=== PATIENT | female | born 1995 | race Caucasian/White ===

== ENCOUNTER → 2023-07-18 09:45 | Outpatient (REF) | payer OTHER, SELFPAY | LOC: PNTC 09:45 | PROVIDERS: ATTENDING PHYSICIAN Obstetrics & Gynecology | DX: O48.0 Post-term pregnancy (principal) | CPT/HCPCS: 59025; 76815 ==

== ENCOUNTER 2023-07-19 08:20 | Inpatient (IN) | payer OTHER, SELFPAY ==
[2023-07-19] MEDS: LR 1000 IV (08:30)
[2023-07-19 08:33] VITALS: BP 105/57
[2023-07-19 09:26] LABS: % Basophils 0.2 % (0-2); % Immature Granulocytes 0.5 % (0-0.5); % Monocytes 6.7 % (1.7-9.3); % Neutrophils 59.6 % (42.2-75.2); Absolute Eosinophils 0.1 10^3/uL (0-0.7); Absolute Lymphocytes 1.8 10^3/uL (1.2-3.4); Absolute Monocytes 0.4 10^3/uL (0.1-0.6); Absolute Neutrophils 3.5 10^3/uL (1.4-6.5); Hematocrit 40.1 % (37.0-47.0); Hemoglobin 13.4 g/dL (12.0-16.0); Mean Corp Hgb Conc. 33.4 g/dL (33.0-37.0); Mean Corpuscular Hgb 31.5 pg (27.0-31.0); Mean Corpuscular Volume 94.1 fL (81.0-99.0); Mean Platelet Volume 10.2 fL (7.4-10.4); Nucleated Red Blood Cells % 0 %; Platelet Count 149 10^3/uL (130-400); Red Blood Cell Count 4.26 10^6/uL (4.20-5.40); Red Cell Dist. Width 13.8 % (11.5-14.5); White Blood Cell Count 5.9 10^3/uL (4.8-10.8)
[2023-07-19] MEDS: PENICILLIN 110 UNITS IV (09:36)
[2023-07-19] MEDS: PITOCIN 30 UNITS/NSS 500 ML IV (12:16)
[2023-07-19] MEDS: PENICILLIN 55 UNITS IV (13:31)
[2023-07-19] MEDS: FENTANYL/BUPIVACAINE 100 EPIDURAL (14:46)
[2023-07-19] MEDS: SUBLIMAZE 100 MCG EPIDURAL (14:46)
[2023-07-19 15:43] VITALS: BMI 25.8
[2023-07-20 04:57] LABS: Hematocrit 37.7 % (37.0-47.0); Hemoglobin 13.1 g/dL (12.0-16.0)
[2023-07-20 15:35] LABS: Syphilis/T. pallidum Ab Reflex Negative (Negative)
[2023-07-21] MEDS: M-M-R II 0.5 ML SC (11:23)
== END 2023-07-21 13:09 | disposition home or self-care (01) | DRG 807 ==
LOC: LDRP 08:20
PROVIDERS: ADMITTING PHYSICIAN Obstetrics & Gynecology; FAMILY PHYSICIAN Student in an Organized Health Care Education/Training Program
PROC: 10907ZC Drainage of Amniotic Fluid, Therapeutic from Products of Conception, Via Natural or Artificial Opening (ICD-10-PCS; 2023-07-19)
PROC: 10E0XZZ Delivery of Products of Conception, External Approach (ICD-10-PCS; 2023-07-19)
PROC: 3E033VJ Introduction of Other Hormone into Peripheral Vein, Percutaneous Approach (ICD-10-PCS; 2023-07-19)
PROC: 3E0134Z Introduction of Serum, Toxoid and Vaccine into Subcutaneous Tissue, Percutaneous Approach (ICD-10-PCS; 2023-07-21)
DX: O48.0 Post-term pregnancy (principal); Z37.0 Single live birth; Z3A.41 41 weeks gestation of pregnancy; Z23 Encounter for immunization; O99.824 Streptococcus B carrier state complicating childbirth; O69.81X0 Labor and delivery complicated by cord around neck, without compression, not applicable or unspecified
CPT/HCPCS: 36415; 85014; 85018; 85025; 86780; 86850; 86900; 86901; 90707

== ENCOUNTER → 2025-03-12 11:07 | Outpatient (REF) | payer OTHER, SELFPAY | LOC: PNTC 11:07 | PROVIDERS: ATTENDING PHYSICIAN Obstetrics & Gynecology; PRIMARYCARE PHYSICIAN Student in an Organized Health Care Education/Training Program | DX: O48.0 Post-term pregnancy (principal) | CPT/HCPCS: 59025; 76815 ==

== ENCOUNTER 2025-03-16 08:06 | Inpatient (IN) | payer OTHER, SELFPAY ==
[2025-03-16 08:37] VITALS: BP 109/59; BMI 25.3
[2025-03-16 08:53] LABS: Hematocrit 40.7 % (37.0-47.0); Hemoglobin 13.9 g/dL (12.0-16.0); Mean Corp Hgb Conc. 34.2 g/dL (33.0-37.0); Mean Corpuscular Volume 93.6 fL (81.0-99.0); Nucleated Red Blood Cells % 0 %; Platelet Count 156 10^3/uL (130-400); Red Cell Dist. Width 13.3 % (11.5-14.5)
[2025-03-16] MEDS: LR 1000 IV ×2 (08:57→14:01)
[2025-03-16] MEDS: PENICILLIN 110 UNITS IV (09:30)
[2025-03-16] MEDS: PITOCIN 30 UNITS/NSS 500 ML IV ×2 (14:01→16:57)
[2025-03-16] MEDS: PENICILLIN 55 UNITS IV (14:01)
[2025-03-16] MEDS: FENTANYL/BUPIVACAINE 100 EPIDURAL (16:14)
[2025-03-16] MEDS: SUBLIMAZE 100 MCG EPIDURAL (16:14)
[2025-03-16] MEDS: METHERGINE INJECTION 0.2 MG IM (17:49)
[2025-03-16] MEDS: TRANEXAMIC ACID 100 IV (17:56)
[2025-03-16] MEDS: MOTRIN 600 MG PO (21:18)
[2025-03-16] MEDS: COLACE 100 MG PO (22:07)
[2025-03-17] MEDS: MOTRIN 600 MG PO (04:42)
[2025-03-17] MEDS: TYLENOL 650 MG PO (04:43)
[2025-03-17 06:01] LABS: Hematocrit 37.4 % (37.0-47.0); Hemoglobin 12.7 g/dL (12.0-16.0)
[2025-03-17] MEDS: COLACE 100 MG PO ×2 (08:06→20:48)
[2025-03-17] MEDS: PRENATAL PLUS 1 TABLET PO (08:06)
[2025-03-17 13:33] LABS: Syphilis/T. pallidum Ab Reflex Negative (Negative)
--- NOTE | 2025-03-18 02:30 | DOWNTIME ---
There was a [employer] Downtime on 03/18/2025 from 0100 to 03/18/2025 at 0215. Downtime documentation of patient's care, including medication administrations, has been reconciled in the electronic record per guidelines. Refer to the
patient's paper chart under the miscellaneous tab to see printed paper medication records and downtime forms.
[2025-03-18] MEDS: COLACE 100 MG PO (08:49)
[2025-03-18] MEDS: PRENATAL PLUS 1 TABLET PO (08:49)
--- NOTE | 2025-03-18 11:09 | CM ---
CM met with Iqra and her in [place] with their who they named Felicia. Iqra and her , Devante have 3 children and their . Devante works outside the home; iLssy is able to be home with the children.
CM discussed insurance coverage for Felicia - Iqra will call [employer] to have Felicia added to their medical insurance.
Plan: Discharge to home with follow up appointment with [facility] in [place].
== END 2025-03-18 12:07 | disposition home or self-care (01) | DRG 807 ==
LOC: LDRP 08:06
PROVIDERS: ADMITTING PHYSICIAN Obstetrics & Gynecology; FAMILY PHYSICIAN Student in an Organized Health Care Education/Training Program
PROC: 10907ZC Drainage of Amniotic Fluid, Therapeutic from Products of Conception, Via Natural or Artificial Opening (ICD-10-PCS; 2025-03-16)
PROC: 10E0XZZ Delivery of Products of Conception, External Approach (ICD-10-PCS; 2025-03-16)
DX: O48.0 Post-term pregnancy (principal); Z37.0 Single live birth; Z3A.41 41 weeks gestation of pregnancy; O99.824 Streptococcus B carrier state complicating childbirth
CPT/HCPCS: 36415; 83789; 85014; 85018; 85025; 86780; 86850; 86900; 86901; 87491; 87591